=== PATIENT | female | born 1990 | race Caucasian/White ===

== ENCOUNTER 2017-01-02 08:35 | Emergency (ER) | payer BC ==
[2017-01-02] MEDS ORDERED: NORMAL SALINE 1000 ML 1,000 ML IV ONE (09:28)
--- NOTE | 2017-01-02 09:32 | ER Document Report ---
ED Respiratory Problem - General Chief Complaint: Cough Stated Complaint: COUGH AND FEVER Time Seen by Provider: 01/02/17 09:02 Mode of Arrival: Ambulatory Information source: Patient Notes: 26-year-old female presents to ED for report of cough x1 week with max 102.6. Went to urgent care on Sunday. He did not see them back spots on her right eye since this morning and has been dizzy. Via ambulance and they gave her half a bag of saline on the way in. She states she has been feeling wheezy at home. TRAVEL OUTSIDE OF THE [place] IN LAST 30 DAYS: No - HPI Patient complains to provider of: Cough Onset: Last week Duration: Continuous Initiating Event: URI Quality of pain: No pain Severity: None Pain Level: Denies Cough: Nonproductive Associated symptoms: Cough, Fever, PND, Runny nose Similar symptoms previously: Yes Recently seen / treated by doctor: Yes - Related Data Allergies/Adverse Reactions: ceftriaxone [From Rocephin] Allergy (Verified 07/06/16 05:22) latex Allergy (Verified 07/06/16 05:22) Past Medical History - General Information source: Patient - Social History Smoking Status: Never Smoker Cigarette use (# per day): No Chew tobacco use (# tins/day): No Smoking Education Provided: No Frequency of alcohol use: None Drug Abuse: None 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 Lives with: Family Family History: Arthritis, DM, Hypertension, Malignancy, Thyroid Disfunction Patient has suicidal ideation: No Patient has homicidal ideation: No - Past Medical History Cardiac Medical History: Reports: None Pulmonary Medical History: Reports: None EENT Medical History: Reports: None Endocrine Medical History: Reports: Hx Diabetes Mellitus Type 1 Renal/ Medical History: Reports: Hx Ovarian Cysts Malignancy Medical History: Reports: None GI Medical History: Reports: None Musculoskeltal Medical History: Reports Hx Musculoskeletal Deformity, Reports Hx Musculoskeletal Trauma Skin Medical History: Reports Hx Cellulitis Psychiatric Medical History: Reports: Hx Anxiety Traumatic Medical History: Reports: Hx Fractures - wrist and ankle Infectious Medical History: Reports: None Past Surgical History: Reports: Hx Section - Immunizations Hx Diphtheria, Pertussis, Tetanus Vaccination: No Review of Systems - Review of Systems Constitutional: Fever, Recent illness EENT: Nose discharge, Sinus discharge, Other - Black dots in film to the right eye Cardiovascular: Dizziness Respiratory: Cough Gastrointestinal: No symptoms reported Genitourinary: No symptoms reported Female Genitourinary: No symptoms reported Musculoskeletal: No symptoms reported Skin: No symptoms reported Hematologic/Lymphatic: No symptoms reported Neurological/Psychological: No symptoms reported Physical Exam - Vital signs Vitals: Temp Pulse Resp BP Pulse Ox 100.5 F H 123 H 20 114/73 94 01/02/17 08:54 01/02/17 08:54 01/02/17 08:54 01/02/17 08:54 01/02/17 08:54 Interpretation: Normal - General General appearance: Appears well, Alert - HEENT Head: Normocephalic, Atraumatic Eyes: Normal Pupils: PERRL Ears: Normal External canal: Normal Tympanic membrane: Normal Sinus: Normal Nasal: Purulent discharge, Swelling Mouth/Lips: Normal Mucous membranes: Normal Pharynx: Post nasal drainage Neck: Normal - Respiratory Respiratory status: No respiratory distress Chest status: Nontender Breath sounds: Nonproductive cough. No: Rales, Rhonchi, Stridor, Wheezing, Other Chest palpation: Normal - Cardiovascular Rhythm: Regular Heart sounds: Normal auscultation Murmur: No - Abdominal Inspection: Normal Distension: No distension Bowel sounds: Normal Tenderness: Nontender Organomegaly: No organomegaly - Back Back: Normal, Nontender - Extremities General upper extremity: Normal inspection, Nontender, Normal color, Normal ROM , Normal temperature General lower extremity: Normal inspection, Nontender, Normal color, Normal ROM , Normal temperature, Normal weight bearing. No: Daphne's sign - Neurological Neuro grossly intact: Yes Cognition: Normal Orientation: AAOx4 [place] Coma Scale Eye Opening: Spontaneous Ivan Coma Scale Verbal: Oriented [place] Coma Scale Motor: Obeys Commands Ivan Coma Scale Total: 15 Speech: Normal Motor strength normal: LUE, RUE, LLE, RLE Sensory: Normal - Psychological Associated symptoms: Normal affect, Normal mood - Skin Skin Temperature: Warm Skin Moisture: Dry Skin Color: Normal Course - Vital Signs Vital signs: Temp Pulse Resp BP Pulse Ox 98.7 F 110 H 16 109/73 100 01/02/17 09:22 01/02/17 10:57 01/02/17 10:57 01/02/17 10:57 01/02/17 10:57 Discharge - Discharge Clinical Impression: Dizziness Upper respiratory infection Qualifiers: URI type: unspecified URI Qualified Code(s): J06.9 - Acute upper respiratory infection, unspecified Condition: Stable Disposition: HOME, SELF-CARE Instructions: Family Physicians / Practices Additional Instructions: DIZZINESS: Under normal circumstances, your sense of balance is controlled by a number of signals that your brain receives from several locations: Eyes. No matter what your position, visual signals help you determine where your body is in space and how it's moving. Sensory nerves. These are in your skin, muscles and joints. Sensory nerves send messages to your brain about body movements and positions. Inner ear. The organ of balance in your inner ear is the vestibular labyrinth. It includes loop-shaped structures (semicircular canals) that contain fluid and fine, hair-like sensors that monitor the rotation of your head. Near the semicircular canals are the utricle and saccule, which contain tiny particles called otoconia ([id number]). These particles are attached to sensors that help detect gravity and bnvc-dmo-[id number] motion. Good balance depends on at least two of these three sensory systems working well. For instance, closing your eyes while washing your hair in the shower doesn't mean you'll lose your balance. Signals from your inner ear and sensory nerves help keep you upright. However, if your central nervous system can't process signals from all of these locations, if the messages are contradictory, or if the sensory systems aren't functioning properly, you may experience loss of balance. Dizziness may have a number of potential causes. These may include: Vertigo Vertigo - the false sense of motion or spinning - is the most common symptom of dizziness. Sitting up or moving around may make it worse. Sometimes vertigo is severe enough to cause nausea and vomiting. Vertigo usually results from a problem with the nerves and the structures of the balance mechanism in your inner ear (vestibular system), which sense movement and changes in your head position. Abnormal rhythmic eye movements ( nystagmus) almost always accompany vertigo. Causes of vertigo may include: Benign paroxysmal positional vertigo (BPPV). BPPV involves intense, brief episodes of vertigo associated with a change in the position of your head, often when you turn over in bed or sit up in the morning. It occurs when normal calcium carbonate crystals (otoconia) break loose and fall into the wrong part of the canals in your inner ear. When these particles shift, they stimulate sensors in your ear, producing an episode of vertigo. Doctors don't know what causes BPPV, but it may be a natural result of aging. Trauma to your head also may lead to BPPV. Inflammation in the inner ear. Signs and symptoms of inflammation of the inner ear (acute vestibular neuronitis or labyrinthitis) include sudden, intense vertigo that may persist for several days, with nausea and vomiting. It can be incapacitating, requiring bed rest to minimize the signs and symptoms. Fortunately, vestibular neuronitis generally subsides and clears up on its own. Recovery time may be shorter with vestibular rehabilitation exercises. Although the cause of this condition is unknown, it may be a viral infection. Meniere's disease. This disease involves the excessive buildup of fluid in your inner ear. It may affect adults at any age and is characterized by sudden episodes of vertigo lasting 30 minutes to an hour or longer. Other signs and symptoms include the feeling of fullness in your ear, buzzing or ringing in your ear (tinnitus), and fluctuating hearing loss. The cause of Meniere's disease is unknown. Vestibular migraine. People who experience a vestibular migraine are very sensitive to motion. Dizziness and vertigo caused by a vestibular migraine may be triggered by turning your head quickly, being in a crowded or confusing place , driving or riding in a vehicle, or even watching movement on TV. A vestibular migraine may cause feelings of imbalance or unsteadiness, hearing loss, "muffled " hearing, or ringing in your ears (tinnitus). For most people with a vestibular migraine, vertigo doesn't necessarily happen at the same time as the headache. Instead, typical migraine triggers may lead to vertigo without an actual migraine. Attacks of migrainous vertigo can last from a few minutes to several days. Acoustic neuroma. An acoustic neuroma (schwannoma) is a noncancerous (benign ) growth on the acoustic nerve, which connects the inner ear to your brain. Signs and symptoms of an acoustic neuroma may include dizziness, loss of balance , hearing loss and tinnitus. Rapid changes in motion. Riding on roller coasters or in boats, cars or even airplanes may on occasion make you dizzy. Other causes. Rarely, vertigo can be a symptom of a more serious neurological problem such as a stroke, brain hemorrhage or multiple sclerosis. UPPER RESPIRATORY ILLNESS: You have a viral infection of the respiratory passages -- a "cold." This common infection causes nasal congestion, drainage, and often sore throat and cough. It is highly contagious. The disease usually lasts about 10 to 14 days. There is no "cure" for the viral infection -- it must run its course. If there is a complication, such as bacterial infection in the nose, sinuses, middle ear, or bronchial tubes, antibiotics may be required. The antibiotics won't affect the virus. Drink plenty of fluids. A humidifier may help. An expectorant medication or decongestant may make you more comfortable. Use acetaminophen or ibuprofen for fever or aches. See the doctor if fever persists over two days, if there is any significant worsening of your symptoms, or if you simply fail to improve as expected. DECONGESTANT MEDICATION: A decongestant medicine has been prescribed. Often this medicine is combined in the same tablet with an antihistamine or expectorant. This type of medicine is helpful in treating a bad cold or sinus condition, as well as in treatment of the nasal congestion of hay fever. It is not of much benefit for lung infections. Decongestant medicines are related to stimulants. They can cause an increase in blood pressure and heart rate. Persons with heart disease and high blood pressure should not take decongestants without discussing this with the physician. If you develop palpitations, chest pain, headache, or tremors, stop the medicine and consult your physician. COUGH-SUPPRESSANT & EXPECTORANT MEDICATION: You are to use a cough medication as needed for relief of symptoms. This medicine is a combination of an expectorant (to make the mucous thinner and more easily "coughed up") and a cough suppressant (to reduce the frequency of coughing). The cough-suppressant medicine is related to narcotics. You may experience mild nausea and sleepiness. Some patients who are very sensitive to narcotics may have stomach pain from this medicine. Taking the medicine with food reduces these side effects. Do not drive or work with machinery until you know how this medicine affects you. The expectorant should have no side effects. Iodine-containing expectorants (such as organidin) should not be taken by persons with active thyroid disease unless approved by your doctor. Call the doctor if you develop shortness of breath, hives, rash, itching, lightheadedness, or severe nausea and vomiting. USE OF ACETAMINOPHEN (Tylenol): Acetaminophen may be taken for pain relief or fever control. It's much safer than aspirin, offering a wider range of "safe" dosages. It is safe during . Some brand names are Tylenol, Panadol, Datril, Anacin 3, Tempra, and Liquiprin. Acetaminophen can be repeated every four hours. The following are maximum recommended dosages: >89 pounds or adults 650 mg to 900 mg Acetaminophen can be repeated every four hours. Maximum dose not to exceed 4000 mg a day. Intravenous (IV) Fluids As part of your care today, you received intravenous (IV) fluids. IV fluids are administered to patients who are dehydrated or to those who have certain chemical (electrolyte) abnormalities that need correcting. Continue medications prescribed by the urgent care and follow-up with your primary doctor. Please get a follow-up appointment with your seismograph supervisor or eye doctor. FOLLOW-UP CARE: If you have been referred to a physician for follow-up care, call the physician s office for an appointment as you were instructed or within the next two days. If you experience worsening or a significant change in your symptoms, notify the physician immediately or return to the Emergency Department at any time for re-evaluation. Forms: Return to Work
[2017-01-02] MEDS ORDERED: ACETAMINOPHEN 325 MG TABLET PO ONE (10:40)
[2017-01-02] MEDS ORDERED: IBUPROFEN 800 MG TABLET PO ONE (10:42)
[2017-01-02] MEDS ORDERED: PROCHLORPERAZINE MALEATE 10 MG TABLET PO ONE (10:42)
[2017-01-02 11:01] VITALS: BP 109/73
== END 2017-01-02 11:01 | disposition home or self-care (01) ==
LOC: ER 08:35
DX: J06.9 Acute upper respiratory infection, unspecified (principal); R42 Dizziness and giddiness; R05 Cough; R50.9 Fever, unspecified; E10.9 Type 1 diabetes mellitus without complications; Z91.040 Latex allergy status
CPT/HCPCS: 99283; S0183; J7030

== ENCOUNTER 2018-01-21 21:39 | Emergency (ER) | payer BC ==
--- NOTE | 2018-01-22 00:37 | ER Document Report ---
ED Medical Screen (RME) - General Chief Complaint: Cough Stated Complaint: COUGH Time Seen by Provider: 01/22/18 00:34 Mode of Arrival: Ambulatory Information source: Patient Notes: 27-year-old female patient presents with complaints of wet cough and shortness of breath. Patient reports that she has been sick for approximately 8 days with an upper respiratory infection. Patient was seen in urgent care yesterday and placed on a azithromycin Dosepak. Patient denies any history of asthma however patient reports that she feels that she has been wheezing at home and feels like she "cannot catch her breath". Patient reports past medical history of insulin-dependent diabetes. TRAVEL OUTSIDE OF THE [place] IN LAST 30 DAYS: No - Related Data Allergies/Adverse Reactions: ceftriaxone [From Rocephin] Allergy (Verified 07/06/16 05:22) latex Allergy (Verified 07/06/16 05:22) Past Medical History - General Information source: Patient - Social History Cigarette use (# per day): No Chew tobacco use (# tins/day): No - She has Frequency of alcohol use: None Drug Abuse: None Lives with: Family Endocrine Medical History: Reports: Hx Diabetes Mellitus Type 1 Renal/ Medical History: Reports: Hx Ovarian Cysts. Denies: Hx Peritoneal Dialysis Musculoskeltal Medical History: Reports Hx Musculoskeletal Deformity, Reports Hx Musculoskeletal Trauma Skin Medical History: Reports Hx Cellulitis Psychiatric Medical History: Reports: Hx Anxiety Traumatic Medical History: Reports: Hx Fractures - wrist and ankle Past Surgical History: Reports: Hx Section - Immunizations Hx Diphtheria, Pertussis, Tetanus Vaccination: No Review of Systems - Review of Systems Constitutional: Chills EENT: Sinus pressure Respiratory: Cough, Short of breath Gastrointestinal: No symptoms reported - Restroom Genitourinary: No symptoms reported Female Genitourinary: No symptoms reported Musculoskeletal: No symptoms reported Skin: No symptoms reported Hematologic/Lymphatic: No symptoms reported - Chest x-ray is in the restroom Neurological/Psychological: No symptoms reported Physical Exam - Vital signs Vitals: Temp Pulse Resp BP Pulse Ox 98.9 F 107 H 18 163/91 H 98 01/21/18 21:46 01/21/18 21:46 01/21/18 21:46 01/21/18 21:46 01/21/18 21:46 - Notes Notes: PHYSICAL EXAMINATION: LUNGS: Breath sounds clear to auscultation bilaterally and equal. No wheezes rales or rhonchi. Course - Vital Signs Vital signs: Temp Pulse Resp BP Pulse Ox 98.9 F 107 H 18 163/91 H 98 01/21/18 21:46 01/21/18 21:46 01/21/18 21:46 01/21/18 21:46 01/21/18 21:46
--- NOTE | 2018-01-22 01:08 | RADIOLOGY REPORT (SQ) ---
EXAM DESCRIPTION: XR CHEST 2 VIEWS COMPLETED DATE/TME: 01/22/2018 00:34 CLINICAL HISTORY: 27 years Female, cough, sob COMPARISON: None. FINDINGS: Adequate lung volume, clear parenchyma, normal cardiac silhouette, and intact bony thorax. IMPRESSION: No acute cardiopulmonary findings.
[2018-01-22] MEDS ORDERED: BENZONATATE 100 MG CAPSULE PO ONE (02:33)
[2018-01-22] MEDS ORDERED: ALBUTEROL SULFATE HFA (90 MCG/PUFF) 200 PUFF/8.5 GM MDI IH ONE (02:33)
--- NOTE | 2018-01-22 02:34 | ER Document Report ---
ED General - General Chief Complaint: Cough Stated Complaint: COUGH Time Seen by Provider: 01/22/18 00:34 Mode of Arrival: Ambulatory Notes: Patient is a 27-year-old female with a past medical history of morbid obesity, type 2 diabetes with insulin dependence who presents with 8 days of cough and intermittent shortness of breath. She states that her shortness of breath is more like a sensation of choking where she feels like she has phlegm in her throat that she is unable to clear. She was seen in urgent care yesterday, prescribed azithromycin but notes that this has not helped to improve her symptoms. Nothing worsens her symptoms. She denies a history of similar symptoms in the past. She denies any history of asthma and does not smoke. She notes at the time of my assessment that she overall feels better than she did earlier when she first came to the emergency department. Multiple sick contacts with similar symptoms. TRAVEL OUTSIDE OF THE [place] IN LAST 30 DAYS: No - Related Data Allergies/Adverse Reactions: ceftriaxone [From Rocephin] Allergy (Verified 07/06/16 05:22) latex Allergy (Verified 07/06/16 05:22) Past Medical History - General Information source: Patient - Social History Smoking Status: Never Smoker Cigarette use (# per day): No Chew tobacco use (# tins/day): No - She has Frequency of alcohol use: None Drug Abuse: None Lives with: Family Family History: Arthritis, DM, Hypertension, Malignancy, Thyroid Disfunction Patient has suicidal ideation: No Patient has homicidal ideation: No Endocrine Medical History: Reports: Hx Diabetes Mellitus Type 1 Renal/ Medical History: Reports: Hx Ovarian Cysts. Denies: Hx Peritoneal Dialysis Musculoskeltal Medical History: Reports Hx Musculoskeletal Deformity, Reports Hx Musculoskeletal Trauma Skin Medical History: Reports Hx Cellulitis Psychiatric Medical History: Reports: Hx Anxiety Traumatic Medical History: Reports: Hx Fractures - wrist and ankle Past Surgical History: Reports: Hx Section - Immunizations Hx Diphtheria, Pertussis, Tetanus Vaccination: No Review of Systems - Review of Systems Notes: Constitutional: Negative for fever. HENT: Negative for sore throat. Eyes: Negative for visual changes. Cardiovascular: Negative for chest pain. Respiratory: Positive for shortness of breath and cough Gastrointestinal: Negative for abdominal pain, vomiting or diarrhea. Genitourinary: Negative for dysuria. Musculoskeletal: Negative for back pain. Skin: Negative for rash. Neurological: Negative for headaches, weakness or numbness. 10 point ROS negative except as marked above and in HPI. Physical Exam - Vital signs Vitals: Temp Pulse Resp BP Pulse Ox 98.9 F 107 H 18 163/91 H 98 01/21/18 21:46 01/21/18 21:46 01/21/18 21:46 01/21/18 21:46 01/21/18 21:46 Interpretation: Hypertensive, Tachycardic - Resolved at the time of my assessment Notes: PHYSICAL EXAMINATION: GENERAL: Well-appearing, well-nourished and in no acute distress. HEAD: Atraumatic, normocephalic. EYES: Pupils equal round and reactive to light, extraocular movements intact, sclera anicteric, conjunctiva are normal. ENT: nares patent, oropharynx clear without exudates. Moist mucous membranes. NECK: Normal range of motion, supple without lymphadenopathy LUNGS: Breath sounds clear to auscultation bilaterally and equal. No wheezes rales or rhonchi. HEART: Regular rate and rhythm without murmurs ABDOMEN: Soft, nontender, normoactive bowel sounds. No guarding, no rebound. No masses appreciated. EXTREMITIES: Normal range of motion, no pitting or edema. No cyanosis. NEUROLOGICAL: No focal neurological deficits. Moves all extremities spontaneously and on command. PSYCH: Normal mood, normal affect. SKIN: Warm, Dry, normal turgor, no rashes or lesions noted. Course - Re-evaluation Re-evalutation: 01/22/18 02:33 Patient presents with a clinical history and exam most consistent with an acute viral bronchitis. Patient is overall well in appearance without tachypnea, hypoxemia, tachycardia, or difficulty with ambulation. Breath sounds are clear bilaterally. No fever. Patient does have additional signs of upper respiratory infection including nasal congestion, sore throat, and sinus pressure. Chest x-ray is clear without evidence of pneumonia. Will treat with bronchodilators and Tessalon Perles. At this time will discharge with return precautions and follow-up recommendations. Verbal discharge instructions given a the bedside and opportunity for questions given. Medication warnings reviewed. Patient is in agreement with this plan and has verbalized understanding of return precautions and the need for primary care follow-up in the next 24-72 hours. - Vital Signs Vital signs: Temp Pulse Resp BP Pulse Ox 98.7 F 96 16 147/72 H 98 01/22/18 02:55 01/22/18 02:55 01/22/18 02:55 01/22/18 02:55 01/22/18 02:55 - Diagnostic Test Radiology reviewed: Image reviewed, Reports reviewed Radiology results interpreted by me: 01/22/18 02:34 Chest x-ray: No acute infiltrate or pneumothorax Discharge - Discharge Clinical Impression: Shortness of breath Acute bronchitis Qualifiers: Bronchitis organism: unspecified organism Qualified Code(s): J20.9 - Acute bronchitis, unspecified Condition: Good Disposition: HOME, SELF-CARE Additional Instructions: You were seen for symptoms most consistent with bronchitis. This can take up to 12 weeks to fully resolve. This is generally due to a viral infection. Please follow-up with your primary doctor in the next 2-3 days. Return if you develop worsening cough, vomiting, fever >100.4, pass out, begin coughing blood, or have any other symptoms that are concerning to you. Please use the medications prescribed today as directed. Prescriptions: Benzonatate [Tessalon Perles 100 mg Capsule] 100 mg PO Q8HP PRN #40 capsule PRN Reason: Referrals: ARTIE ORNELAS DO [Primary Care Provider] - Follow up as needed
[2018-01-22 02:56] VITALS: BP 147/72
== END 2018-01-22 02:56 | disposition home or self-care (01) ==
LOC: ER 21:39
DX: J20.9 Acute bronchitis, unspecified (principal); R05 Cough; J02.9 Acute pharyngitis, unspecified; R09.81 Nasal congestion; J34.89 Other specified disorders of nose and nasal sinuses; R06.02 Shortness of breath; E11.9 Type 2 diabetes mellitus without complications; Z79.4 Long term (current) use of insulin; Z88.1 Allergy status to other antibiotic agents; Z91.040 Latex allergy status
CPT/HCPCS: 99283; 71046; J3490

== ENCOUNTER 2018-08-28 07:48 | Inpatient (IN) | payer BC ==
[2018-08-28] MEDS ORDERED: DIPHENHYDRAMINE HCL 50 MG/ML VIAL IV ONE (08:17)
[2018-08-28] MEDS ORDERED: FAMOTIDINE INJ/PF 20 MG/2 ML SDV IV ONE (08:17)
[2018-08-28] MEDS ORDERED: METHYLPREDNISOLONE INJ 125 MG/2 ML SDV IV ONE (08:17)
[2018-08-28] MEDS ORDERED: EPINEPHRINE INJ/PF 1 MG/1 ML AMPULE IM ONE ×2 (08:18→10:50)
--- NOTE | 2018-08-28 08:22 | ER Document Report ---
ED General - General Chief Complaint: Shortness Of Breath Stated Complaint: DIFFICULTY BREATHING Time Seen by Provider: 08/28/18 08:07 Primary Care Provider: ARTIE ORNELAS DO [Primary Care Provider] - Follow up as needed TRAVEL OUTSIDE OF THE [place] IN LAST 30 DAYS: No - HPI Notes: Patient is a 28-year-old female that presents to the emergency department for chief complaint of throat swelling. Patient reports she woke up this morning with throat swelling. She states she feels like her uvula is enlarged. She was seen at her primary care doctor's office because she is having a sore throat yesterday. She has baseline tonsillar edema and states she has been considering talking to ENT for tonsillectomy. The swelling she feels today is significantly worse. She denies exposure to any known allergy. She denies history of anaphylactic reaction in the past. She is not on any medications other than insulin and denies any change in those doses recently. She states she is having a difficult time breathing because of the swelling in her throat. Past Medical History: Diabetes Past Surgical History: Social History: Denies drugs alcohol and tobacco Family History: Reviewed and noncontributory for presenting illness Allergies: Reviewed, see documented allergy list. REVIEW OF SYSTEMS: CONSTITUTIONAL : No fever No chills No diaphoresis No recent illness EENT: No vision changes No congestion sore throat CARDIOVASCULAR: No chest pain No palpitations RESPIRATORY: No shortness of breath No cough No difficulty breathing GASTROINTESTINAL: No abdominal pain No nausea No vomiting No diarrhea GENITOURINARY: No dysuria No hematuria difficulty urinating MUSCULOSKELETAL: No back pain No leg pain No arm pain SKIN: No rashes No lesions LYMPHATIC: No swollen, enlarged glands. NEUROLOGICAL: No lightheadedness No headache No weakness No paresthesias PSYCHIATRIC: No anxiety No depression PHYSICAL EXAMINATION: Vital signs reviewed, nursing noted reviewed. GENERAL: Well-appearing, well-nourished and in no acute distress. HEAD: Atraumatic, normocephalic. EYES: Eyes appear normal, extraocular movements intact, sclera anicteric, conjunctiva are normal. ENT: nares patent, uvular edema, oral pharyngeal edema with no erythema or exudates, tonsillar enlargement bilaterally, moist mucous membranes. NECK: Normal range of motion, supple without lymphadenopathy LUNGS: No stridor, breath sounds clear to auscultation bilaterally and equal. No wheezes rales or rhonchi. HEART: Tachycardic rate and regular rhythm without murmurs ABDOMEN: Soft, nontender, normoactive bowel sounds. No rebound, guarding, or rigidity. No masses appreciated. EXTREMITIES: Nontender, good range of motion, no pitting or edema. NEUROLOGICAL: No focal neurological deficits. Moves all extremities spontaneously Motor and sensory grossly intact on exam. PSYCH: Anxious mood, normal affect. SKIN: Warm, Dry, normal turgor, no rashes or lesions noted on exposed skin - Related Data Allergies/Adverse Reactions: ceftriaxone [From Rocephin] Allergy (Verified 07/06/16 05:22) latex Allergy (Verified 07/06/16 05:22) Past Medical History - Social History Smoking Status: Never Smoker Chew tobacco use (# tins/day): No Frequency of alcohol use: None Drug Abuse: None Family History: Arthritis, DM, Hypertension, Malignancy, Thyroid Disfunction Patient has suicidal ideation: No Patient has homicidal ideation: No Endocrine Medical History: Reports: Hx Diabetes Mellitus Type 1 Renal/ Medical History: Reports: Hx Ovarian Cysts. Denies: Hx Peritoneal Dialysis Musculoskeletal Medical History: Reports Hx Musculoskeletal Deformity, Reports Hx Musculoskeletal Trauma Skin Medical History: Reports Hx Cellulitis Psychiatric Medical History: Reports: Hx Anxiety Traumatic Medical History: Reports: Hx Fractures - wrist and ankle Past Surgical History: Reports: Hx Section - Immunizations Hx Diphtheria, Pertussis, Tetanus Vaccination: No Physical Exam - Vital signs Vitals: Temp Pulse Resp BP Pulse Ox 98.7 F 111 H 16 160/101 H 100 08/28/18 07:53 08/28/18 07:53 08/28/18 07:53 08/28/18 07:53 08/28/18 07:53 Course - Re-evaluation Re-evalutation: 08/28/18 08:21 Vitals reviewed. Nursing notes reviewed. Patient has a significant amount of posterior oropharyngeal and uvular edema. She was given epinephrine, Solu- Medrol, Pepcid and Benadryl for allergic reaction. 08/28/18 09:23 Patient reevaluated and is feeling better. She still has a moderate amount of uvular edema over the oropharyngeal edema is improving. She still has no stridor. We will continue to monitor her airway. 08/28/18 10:54 Patient again reevaluated and her oropharyngeal exam is the same as it was at 0 923 however she feels that the swelling is starting to increase again. She is still breathing well on room air and in no respiratory distress. She has no stridor. She will be given another dose of the IM epinephrine for concern that her symptoms are subjectively worsening. Patient will be admitted to the ICU for close monitoring of her airway. I discussed her care with Dr. Barclay who has requested urine tox and basic lab work. She is in agreement with admission to the hospital and stable at time of admission. - Vital Signs Vital signs: Temp Pulse Resp BP Pulse Ox 98.7 F 112 H 21 H 139/84 H 98 08/28/18 07:53 08/28/18 08:02 08/28/18 09:01 08/28/18 09:01 08/28/18 09:01 Critical Care Note - Critical Care Note Total time excluding time spent on procedures (mins): 60 Comments: Multiple repeat evaluations. Stabilization of acute anaphylaxis. Repeat dosing of epinephrine. Potential for respiratory and cardiovascular decompensation. Discharge - Discharge Clinical Impression: Uvular edema Anaphylaxis Qualifiers: Encounter type: initial encounter Qualified Code(s): T78.2XXA - Anaphylactic shock, unspecified, initial encounter Condition: Stable Disposition: ADMITTED OBSERVATION Admitting Provider: Hospitalist Unit Admitted: ICU Referrals: ARTIE ORNELAS DO [Primary Care Provider] - Follow up as needed
--- NOTE | 2018-08-28 08:58 | RADIOLOGY REPORT (SQ) ---
EXAM DESCRIPTION: SOFT TISSUE NECK COMPLETED DATE/TIME: 08/28/2018 8:50 am REASON FOR STUDY: throat swelling COMPARISON: None. NUMBER OF VIEWS: Two views. TECHNIQUE: AP and lateral radiographic image of the soft tissues of the neck. LIMITATIONS: None. FINDINGS: EPIGLOTTIS: Normal. Contour normal. Aryepiglottic folds normal. PREVERTEBRAL SOFT TISSUES: Normal. No soft tissue swelling. SUBGLOTTIC AREA: Normal. No narrowing. RETROPHARYNGEAL SPACE: Normal. No soft tissue masses. BONES: No significant findings. LUNG APICES: Normal. OTHER: No radiopaque foreign body. No other significant finding. IMPRESSION: NEGATIVE STUDY OF THE SOFT TISSUES OF THE NECK. TECHNICAL DOCUMENTATION: JOB ID: [id number] [employer]- All Rights Reserved Reading location - IP/workstation name: [email or web address]
[2018-08-28 11:28] LABS: ABSOLUTE LYMPHOCYTES (AUTO) 1.3 10^3/uL (0.5-4.7); ABSOLUTE MONOCYTES (AUTO) 0.2 10^3/uL (0.1-1.4); ABSOLUTE NEUT (AUTO) 8.1 10^3/uL (1.7-8.2); BASOPHILS % (AUTO) 0.3 % (0-2); EOSINOPHILS % (AUTO) 0.1 % (0-6); HEMATOCRIT 40.1 % (36.0-47.0); HEMOGLOBIN 14.3 g/dL (12.0-15.5); LYMPHOCYTES % (AUTO) 13.1 % (13-45); MEAN CORPUSCULAR HEMOGLOBIN 30.8 pg (27.0-33.4); MEAN CORPUSCULAR HGB CONC 35.6 g/dL (32.0-36.0); MEAN CORPUSCULAR VOLUME 87 fl (80-97); MONOCYTES % (AUTO) 2.6 % (3-13); PLATELET COUNT 219 10^3/uL (150-450); RED BLOOD COUNT 4.63 10^6/uL (3.72-5.28); SEGMENTED NEUTROPHILS % (AUTO) 83.9 % (42-78); TOTAL CELLS COUNTED % (AUTO) 100 %; WHITE BLOOD COUNT 9.7 10^3/uL (4.0-10.5)
[2018-08-28 12:17] LABS: ANION GAP 12 (5-19); BLOOD UREA NITROGEN 8 mg/dL (7-20); CALCIUM 9.4 mg/dL (8.4-10.2); CARBON DIOXIDE 23 mmol/L (22-30); CHLORIDE 103 mmol/L (98-107); GLUCOSE 284 mg/dL (75-110); POTASSIUM 4.8 mmol/L (3.6-5.0); SODIUM 137.7 mmol/L (137-145)
[2018-08-28 12:19] LABS: URINE AMPHETAMINES SCREEN NEGATIVE; URINE BARBITURATES SCREEN NEGATIVE; URINE BENZODIAZEPINES SCREEN NEGATIVE; URINE COCAINE SCREEN NEGATIVE; URINE MARIJUANA (THC) SCREEN NEGATIVE; URINE METHADONE SCREEN NEGATIVE; URINE PHENCYCLIDINE SCREEN NEGATIVE
[2018-08-28] MEDS ORDERED: IPRATROPIUM/ALBUTEROL 0.5-2.5 MG/3 ML AMPUL NEB PRN (14:18)
[2018-08-28] MEDS ORDERED: DIPHENHYDRAMINE HCL 50 MG/ML VIAL IV PRN (14:18)
[2018-08-28] MEDS ORDERED: ONDANSETRON HCL INJ/PF 4 MG/2 ML SDV IV PRN (14:18)
[2018-08-28] MEDS ORDERED: HYDRALAZINE HCL INJ/PF 20 MG/1 ML SDV IV PRN (14:18)
[2018-08-28] MEDS ORDERED: DEXTROSE 50%-WATER 25 GM/50 ML DISP.SYRIN IV PRN ×4 (14:18→17:37)
[2018-08-28] MEDS ORDERED: GLUCAGON,HUMAN RECOMB 1 MG INJ SUBCUT PRN (14:18)
[2018-08-28] MEDS ORDERED: ACETAMINOPHEN 325 MG TABLET PO PRN (14:18)
[2018-08-28] MEDS ORDERED: DEXTROSE 40% GEL 15 GM TUBE PO PRN ×4 (14:18→17:37)
[2018-08-28] MEDS ORDERED: METHYLPREDNISOLONE INJ 125 MG/2 ML SDV IV SCH (14:29)
[2018-08-28] MEDS ORDERED: DILTIAZEM HCL 30 MG TABLET PO SCH (14:30)
[2018-08-28] MEDS ORDERED: GLUCAGON,HUMAN RECOMB 1 MG INJ IM PRN (17:37)
[2018-08-28] MEDS: METHYLPREDNISOLONE INJ 125 MG/2 ML SDV IV SCH (17:49)
[2018-08-28] MEDS: DOCUSATE SODIUM 100 MG CAPSULE PO SCH (17:51)
[2018-08-28] MEDS ORDERED: DILTIAZEM HCL 30 MG TABLET PO ONE (18:00)
--- NOTE | 2018-08-28 18:01 | PDOC H&P ---
History of Present Illness Admission Date/PCP: 08/28/18 14:18 ARTIE ORNELAS DO Patient complains of: Shortness of breath History of Present Illness: YUNI CARD is a 28 year old female with a past medical history of diabetes type 2 and hypertension, who presented to the ED complaining of shortness of breath and swelling in her throat. Patient states that this morning she woke up and she felt like she could not swallow. She states that she felt short of breath and she was having difficulty swallowing. She came to the ED for evaluation. She denies any chest pain, abdominal pain, nausea/vomiting or diarrhea. She denies any new medications, new diet, use of new detergent, new clothing or exposure to anything new in the last 2 or 3 days. Patient states last night when she went to bed she was fine. She tells me that she has a history of type 2 diabetes since per her physician she is still making some insulin. She is currently on insulin and sliding scale at home. He does not know what her recent A1c is. I asked her if she is ever had swelling in the throat and she tells me that in the past she has had this when she had some sinusitis. She does admit to some congestion in the last 2 or 3 days with runny nose and congested feeling. She also admits that she went to her doctor for a regular scheduled visit yesterday and they swabbed her throat for strep, she does not know the results, and may be that triggered it. She also tell me about 2-3 weeks ago she was not feeling well and went to an urgent care and was given Augmentin for an infection of the upper respiratory tract/sinusitis. I discussed with her further about her swelling of the throat and if she is ever had before. She tells me know. She does admit however that many years ago she was started on lisinopril for her known diabetes and unfortunately she had a re action of swelling in the lip. At that time they believe she had angioedema from the lisinopril. And for this reason she was switched to losartan for renal protection. She has been taking the losartan for the last 7-8 months she tells me. Past Medical History Endocrine Medical History: Reports: Diabetes Mellitus Type 1 Past Surgical History Past Surgical History: Reports: Section Social History Smoking Status: Never Smoker - Advance Directive Resuscitation Status: Full Code Family History Family History: Arthritis, DM, Hypertension, Malignancy, Thyroid Disfunction Parental Family History Reviewed: Yes Children Family History Reviewed: Unknown Sibling(s) Family History Reviewed.: Unknown Medication/Allergy Home Medications: Ascorbic Acid [Vitamin C 500 mg Tablet] 500 mg PO DAILY 08/28/18 Cetirizine HCl [Zyrtec 10 mg Tablet] 10 mg PO DAILYP PRN 08/28/18 Cholecalciferol (Vitamin D3) [Vitamin D3 5000 unit Capsule] 5,000 unit PO DAILY 08/28/18 Citalopram Hydrobromide [Celexa 40 mg Tablet] 60 mg PO DAILY 08/28/18 Cyanocobalamin (Vitamin B-12) [Vitamin B-12] 1,000 mcg PO DAILY 08/28/18 Ergocalciferol (Vitamin D2) [Drisdol 50,000 Unit (1.25MG) Capsule] 50,000 unit PO MO@10 08/28/18 Flu Vacc [id number] [id number] Up/Pf [Fluzone Quad [id number] Syringe] 0.5 ml IM .RECEIVED 06/12/18 MDD 06/12/18 08/28/18 Hydrochlorothiazide [Hydrodiuril 25 mg Tablet] 25 mg PO DAILY 08/28/18 Insulin Regular, Human [Humulin R] 30 unit SQ BIDP PRN MDD slides a little bit 08/28/18 Losartan Potassium [Cozaar 25 mg Tablet] 25 mg PO DAILY 08/28/18 Metformin HCl [Metformin HCl ER] 1,000 mg PO BIDBS 08/28/18 Allergies/Adverse Reactions: ceftriaxone [From Rocephin] Allergy (Verified 07/06/16 05:22) latex Allergy (Verified 07/06/16 05:22) Review of Systems All systems: reviewed and no additional remarkable complaints except as stated Constitutional: ABSENT: chills, fever(s) Eyes: ABSENT: visual disturbances Nose, Mouth, and Throat: PRESENT: sore throat, other - Swelling of the throat. ABSENT: mouth pain Cardiovascular: ABSENT: chest pain, edema Respiratory: PRESENT: dyspnea. ABSENT: cough Gastrointestinal: ABSENT: abdominal pain, nausea, vomiting Genitourinary: ABSENT: dysuria Musculoskeletal: ABSENT: muscle weakness Neurological: ABSENT: abnormal movements, abnormal speech, focal weakness, numbness Endocrine: ABSENT: polyphagia Hematologic/Lymphatic: ABSENT: easy bruising Physical Exam Vital Signs: Temp Pulse Resp BP Pulse Ox 98.7 F 112 H 23 H 177/80 H 98 08/28/18 07:53 08/28/18 08:02 08/28/18 13:01 08/28/18 13:01 08/28/18 13:01 General appearance: PRESENT: no acute distress Head exam: PRESENT: atraumatic, normocephalic Eye exam: PRESENT: EOMI. ABSENT: conjunctival injection, scleral icterus Ear exam: PRESENT: normal external ear exam Mouth exam: PRESENT: moist, neck supple, tongue midline Throat exam: PRESENT: other - Uvula is swollen, unable to visualize the tonsils completely but they are enlarged. ABSENT: post pharyngeal erythema Respiratory exam: PRESENT: clear to auscultation marlyn, symmetrical, unlabored. ABSENT: retraction, rhonchi, stridor, wheezes Cardiovascular exam: PRESENT: +S1, +S2, tachycardia Pulses: PRESENT: +2 pedal pulses bilateral GI/Abdominal exam: PRESENT: normal bowel sounds, soft. ABSENT: tenderness Extremities exam: ABSENT: pedal edema Neurological exam: PRESENT: alert, awake, oriented to person, oriented to place, oriented to time, oriented to situation, CN II-XII grossly intact Skin exam: PRESENT: dry, warm Results Laboratory Results: 08/28/18 11:10 08/28/18 11:10 08/28/18 08/28/18 11:10 11:10 WBC 9.7 RBC 4.63 Hgb 14.3 Hct 40.1 MCV 87 MCH 30.8 MCHC 35.6 RDW 13.0 Plt Count 219 Seg Neutrophils % 83.9 H Lymphocytes % 13.1 Monocytes % 2.6 L Eosinophils % 0.1 Basophils % 0.3 Absolute Neutrophils 8.1 Absolute Lymphocytes 1.3 Absolute Monocytes 0.2 Absolute Eosinophils 0.0 Absolute Basophils 0.0 Sodium 137.7 Potassium 4.8 Chloride 103 Carbon Dioxide 23 Anion Gap 12 BUN 8 Creatinine 0.45 L Est GFR ( Amer) > 60 Est GFR (Non-Af Amer) > 60 Glucose 284 H Calcium 9.4 Impressions: Soft Tissue Neck X-Ray 08/28/18 08:17 IMPRESSION: NEGATIVE STUDY OF THE SOFT TISSUES OF THE NECK. Assessment & Plan - Diagnosis (1) Anaphylaxis Qualifiers: Encounter type: initial encounter Qualified Code(s): T78.2XXA - Anaphylactic shock, unspecified, initial encounter Is this a current diagnosis for this admission?: Yes Plan: She has uvular edema and feeling short of breath with feeling of swelling in her throat. At this time I am not clear what is causing this. In the ED she received 1 dose of epi, Solu-Medrol 125, Benadryl and Pepcid. She felt a little bit better but then again her he will start to swell. She so she received another dose of epi and I have not reevaluated her since. At this point given the fact that her airway may be compromised it is highly recommended that she goes to the ICU for very close monitoring. I spoke with patient about the fact that she may need to be intubated if her airway is compromised and she understands and she agrees with that plan. We will continue with Solu-Medrol 125 mg IV every 8 hours. Pepcid IV every 12 hours. Benadryl as needed. I have also consulted Dr. Salas for his assistance. Although I am not clear what is causing her current swelling I feel that this may be related to her use of losartan. Patient had a history of angioedema/swelling of the lips on lisinopril a few years ago and she was stopped on the lisinopril. But she was started on losartan 68 months ago for her history of diabetes and for renal protective purposes. Although lisinopril and losartan are not completely similar there might be some cross-reactivity and hence I have stopped losartan completely. (2) Diabetes Is this a current diagnosis for this admission?: Yes Plan: She tells me that she is type 2 diabetes per her doctor since she still making insulin in a small amount. She is currently on a concentrated form of insulin at home which we do not have here. I have asked her to bring it from home. At this time we will hold that insulin since she is n.p.o. We will just put her on a sliding scale before meals at bedtime. (3) Hypertension Is this a current diagnosis for this admission?: Yes Plan: She is on losartan which I have stopped. Start hydralazine as needed. We may have to start her on a more long-term chronic medication once she is feeling better from her anaphylaxis. (4) Uvular edema Is this a current diagnosis for this admission?: Yes Plan: See plan for anaphylaxis (5) Psychiatric disorder Is this a current diagnosis for this admission?: Yes Plan: She is on Celexa but this will be held since she is n.p.o. and I am not sure if she will be able to swallow-once her swelling goes down she will be able to resume her medication. (6) Tachycardia Is this a current diagnosis for this admission?: Yes Plan: She tells me that her resting heart rate is around 100-110. States that her doctors know about this and they have not done anything about it. - Time Time Spent: 50 to 70 Minutes Anticipated discharge: Home - Inpatient Certification Based on my medical assessment, after consideration of the patient's comorbidities, presenting symptoms, or acuity I expect that the services needed warrant INPATIENT care.: Yes I certify that my determination is in accordance with my understanding of Medicare's requirements for reasonable and necessary INPATIENT services [42 CFR 412.3e].: Yes Medical Necessity: Failure to Improve With Outpatient Therapy, Need Close Monitoring Due to Risk of Patient Decompensation, Need For Continuous Telemetry Monitoring - Plan Summary Plan Summary: Keep her in the ICU and monitor her for the next 24 hours and then we can downgrade her. If she does well after that for the next 24 hours she can be discharged to her primary care.
[2018-08-28] MEDS: NORMAL SALINE 1000 ML 1,000 ML IV PRN (18:09)
--- NOTE | 2018-08-28 18:40 | Progress Note ---
Provider Note Provider Note: called by nursing Lisset- wants me downgrade patient from ICU status since there are no beds available. Per Farhat- her current ED nurse patient is doing much better. i did not re-evaluate patient- will switch patient to IMCU and keep close monitor on her
[2018-08-28] MEDS: INSULIN LISPRO 100 UNIT/ML 3 ML VIAL SUBCUT PRN (19:08)
[2018-08-28] MEDS: LORAZEPAM INJ 2 MG/1 ML VIAL IV PRN (20:28)
[2018-08-29] MEDS: METHYLPREDNISOLONE INJ 125 MG/2 ML SDV IV SCH ×2 (03:00→10:20)
[2018-08-29 05:16] LABS: ABSOLUTE MONOCYTES (AUTO) 0.3 10^3/uL (0.1-1.4); ABSOLUTE NEUT (AUTO) 10.7 10^3/uL (1.7-8.2); BASOPHILS % (AUTO) 0.2 % (0-2); HEMATOCRIT 36.8 % (36.0-47.0); HEMOGLOBIN 12.9 g/dL (12.0-15.5); LYMPHOCYTES % (AUTO) 8.3 % (13-45); MEAN CORPUSCULAR HEMOGLOBIN 30.6 pg (27.0-33.4); MEAN CORPUSCULAR HGB CONC 35.1 g/dL (32.0-36.0); MEAN CORPUSCULAR VOLUME 87 fl (80-97); MONOCYTES % (AUTO) 2.3 % (3-13); PLATELET COUNT 231 10^3/uL (150-450); RED BLOOD COUNT 4.23 10^6/uL (3.72-5.28); RED CELL DISTRIBUTION WIDTH 12.9 % (11.5-14.0); SEGMENTED NEUTROPHILS % (AUTO) 89.2 % (42-78); TOTAL CELLS COUNTED % (AUTO) 100 %
[2018-08-29 05:39] LABS: ALANINE AMINOTRANSFERASE 21 U/L (9-52); ALBUMIN 4.2 g/dL (3.5-5.0); ALKALINE PHOSPHATASE 59 U/L (38-126); ANION GAP 14 (5-19); ASPARTATE AMINO TRANSFERASE 14 U/L (14-36); BILIRUBIN,DIRECT 0.3 mg/dL (0.0-0.4); BLOOD UREA NITROGEN 14 mg/dL (7-20); CALCIUM 9.3 mg/dL (8.4-10.2); CARBON DIOXIDE 19 mmol/L (22-30); CHLORIDE 102 mmol/L (98-107); GLUCOSE 317 mg/dL (75-110); POTASSIUM 4.4 mmol/L (3.6-5.0); SODIUM 134.7 mmol/L (137-145); TOTAL PROTEIN 6.6 g/dL (6.3-8.2)
[2018-08-29] MEDS: HEPARIN SOD (PORCINE) 5,000 UNIT/ML 1 ML SYRINGE SUBCUT SCH ×3 (05:48→22:05)
[2018-08-29] MEDS: DILTIAZEM HCL 30 MG TABLET PO SCH ×3 (05:51→22:07)
[2018-08-29] MEDS: INSULIN LISPRO 100 UNIT/ML 3 ML VIAL SUBCUT PRN ×2 (06:44→14:47)
[2018-08-29] MEDS ORDERED: CITALOPRAM HYDROBROMIDE 60 MG PO SCH (10:00)
[2018-08-29] MEDS: FAMOTIDINE INJ/PF 20 MG/2 ML SDV IV SCH ×3 (10:19→22:08)
[2018-08-29] MEDS: CITALOPRAM HYDROBROMIDE 20 MG TABLET PO SCH (10:20)
[2018-08-29] MEDS: HYDROCHLOROTHIAZIDE 25 MG TABLET PO SCH (10:21)
[2018-08-29] MEDS: DOCUSATE SODIUM 100 MG CAPSULE PO SCH ×2 (10:21→17:38)
[2018-08-29] MEDS: NORMAL SALINE 1000 ML 1,000 ML IV PRN (12:36)
[2018-08-29] MEDS: CETIRIZINE 10 MG TABLET PO SCH (13:03)
[2018-08-29] MEDS ORDERED: ONDANSETRON HCL INJ/PF 4 MG/2 ML SDV IV PRN (13:30)
--- NOTE | 2018-08-29 13:40 | PDOC PROGRESS REPORT ---
Subjective Progress Note for:: 08/29/18 Subjective:: Doing better, no difficulty swallowing. Patient admitted with suspected anaphylaxis to losartan. Her current symptoms different from her angioedema when she was on lisinopril. At that time she had swelling of the lips. Denies fever or chills, no chest pain or shortness of breath or palpitations, no abdominal pain, no nausea or vomiting. She has problems with allergic rhinitis and takes Zyrtec as outpatient. She will want restarted. She has enlarged tonsils and has plans to follow-up with ENT as outpatient. Reason For Visit: ANAPHYLAXIS Physical Exam Vital Signs: Temp Pulse Resp BP Pulse Ox 98.5 F 106 H 16 113/65 97 08/29/18 07:10 08/29/18 10:22 08/29/18 10:22 08/29/18 07:10 08/29/18 10:22 Intake & Output 08/28/18 08/29/18 08/30/18 06:59 06:59 06:59 Intake Total 1000 Balance 1000 Weight 121.6 kg GEN: NAD, well-developed, well-nourished ENT: Normocephalic atraumatic, tonsils are large but no erythema or exudate Neck: Supple, no JVD, no lymphadenopathy CV: RRR, NL S1S2 LUNGS: CTA bilaterally ABDOMEN Soft, NT, +BS EXTERMITIES: No e/c/c NEURO: Alert, oriented x3, nonfocal Results Laboratory Results: 08/29/18 04:15 08/29/18 04:15 08/29/18 08/29/18 08/29/18 04:15 04:15 04:15 WBC 12.0 H RBC 4.23 Hgb 12.9 Hct 36.8 MCV 87 MCH 30.6 MCHC 35.1 RDW 12.9 Plt Count 231 Seg Neutrophils % 89.2 H Lymphocytes % 8.3 L Monocytes % 2.3 L Eosinophils % 0.0 Basophils % 0.2 Absolute Neutrophils 10.7 H Absolute Lymphocytes 1.0 Absolute Monocytes 0.3 Absolute Eosinophils 0.0 Absolute Basophils 0.0 Sodium 134.7 L Potassium 4.4 Chloride 102 Carbon Dioxide 19 L Anion Gap 14 BUN 14 Creatinine 0.46 L Est GFR ( Amer) > 60 Est GFR (Non-Af Amer) > 60 Glucose 317 H Calcium 9.3 Magnesium 1.9 Total Bilirubin 1.0 AST 14 ALT 21 Alkaline Phosphatase 59 Total Protein 6.6 Albumin 4.2 TSH 0.49 Impressions: Soft Tissue Neck X-Ray 08/28/18 08:17 IMPRESSION: NEGATIVE STUDY OF THE SOFT TISSUES OF THE NECK. Assessment & Plan - Diagnosis (1) Anaphylaxis Qualifiers: Encounter type: subsequent encounter Qualified Code(s): T78.2XXD - Anaphylactic shock, unspecified, subsequent encounter Is this a current diagnosis for this admission?: Yes Plan: Improved. (2) Diabetes Is this a current diagnosis for this admission?: Yes (3) Hypertension Is this a current diagnosis for this admission?: Yes (4) Psychiatric disorder Is this a current diagnosis for this admission?: Yes Plan: Appears to be depression. Stable at this time. (5) Tachycardia Is this a current diagnosis for this admission?: Yes (6) Uvular edema Is this a current diagnosis for this admission?: Yes - Plan Summary Plan Summary: Will continue to hold losartan for now. Will transition Solu-Medrol to prednisone. Will restart Zyrtec. Would discontinue n.p.o. and allow patient to eat. Resume Celexa. If patient tolerating p.o. and continues to improve by a.m., likely discharge.
[2018-08-29] MEDS: LORAZEPAM INJ 2 MG/1 ML VIAL IV PRN (22:21)
[2018-08-30] MEDS: DILTIAZEM HCL 30 MG TABLET PO SCH (06:49)
[2018-08-30] MEDS: HEPARIN SOD (PORCINE) 5,000 UNIT/ML 1 ML SYRINGE SUBCUT SCH (06:49)
[2018-08-30] MEDS: CETIRIZINE 10 MG TABLET PO SCH (09:32)
[2018-08-30] MEDS: CITALOPRAM HYDROBROMIDE 20 MG TABLET PO SCH (09:32)
[2018-08-30] MEDS: FAMOTIDINE INJ/PF 20 MG/2 ML SDV IV SCH (09:32)
[2018-08-30] MEDS: HYDROCHLOROTHIAZIDE 25 MG TABLET PO SCH (09:32)
[2018-08-30] MEDS: DOCUSATE SODIUM 100 MG CAPSULE PO SCH (09:33)
[2018-08-30] MEDS ORDERED: PREDNISONE 20 MG TABLET PO SCH (10:00)
[2018-08-30 11:42] VITALS: BP 122/76
--- NOTE | 2018-09-03 09:15 | PDOC DISCHARGE SUMMARY ---
General - Admit/Disc Date/PCP Admission Date/Primary Care Provider: 08/28/18 14:18 ARTIE ORNELAS, Discharge Date: 08/30/18 - Discharge Diagnosis (1) Anaphylaxis Is this a current diagnosis for this admission?: Yes (2) Diabetes Is this a current diagnosis for this admission?: Yes (3) Hypertension Is this a current diagnosis for this admission?: Yes (4) Psychiatric disorder Is this a current diagnosis for this admission?: Yes (5) Tachycardia Is this a current diagnosis for this admission?: Yes (6) Uvular edema Is this a current diagnosis for this admission?: Yes - Additional Information Resuscitation Status: Full Code Prescriptions: Lorazepam [Ativan 0.5 mg Tablet] 0.5 mg PO Q6 #10 tab Prednisone [Deltasone 20 mg Tablet] 40 mg PO DAILY 3 Days tablet Home Medications: Ascorbic Acid [Vitamin C 500 mg Tablet] 500 mg PO DAILY 08/28/18 Cetirizine HCl [Zyrtec 10 mg Tablet] 10 mg PO DAILYP PRN 08/28/18 Cholecalciferol (Vitamin D3) [Vitamin D3 5000 unit Capsule] 5,000 unit PO DAILY 08/28/18 Citalopram Hydrobromide [Celexa 40 mg Tablet] 60 mg PO DAILY 08/28/18 Cyanocobalamin (Vitamin B-12) [Vitamin B-12] 1,000 mcg PO DAILY 08/28/18 Ergocalciferol (Vitamin D2) [Drisdol 50,000 unit (1.25MG) Capsule] 50,000 unit PO MO@10 08/28/18 Flu Vacc [id number] 36Mos Up/Pf [Fluzone Quad [id number] Syringe] 0.5 ml IM .RECEIVED 06/12/18 MDD 06/12/18 08/28/18 Hydrochlorothiazide [Hydrodiuril 25 mg Tablet] 25 mg PO DAILY 08/28/18 Insulin Regular, Human [Humulin R (Hi-Dose) Insulin 500 unit/mL] 30 unit SQ BIDP PRN MDD slides a little bit 08/28/18 Metformin HCl [Metformin HCl ER] 1,000 mg PO BIDBS 08/28/18 Lorazepam [Ativan 0.5 mg Tablet] 0.5 mg PO Q6 #10 tab 08/30/18 Prednisone [Deltasone 20 mg Tablet] 40 mg PO DAILY 3 Days tablet 08/30/18 History of Present Illness History of Present Illness: Patient was admitted after presentation as inHPI below: "YUNI CARD is a 28 year old female with a past medical history of diabetes type 2 and hypertension, who presented to the ED complaining of shortness of breath and swelling in her throat. Patient states that this morning she woke up and she felt like she could not swallow. She states that she felt short of breath and she was having difficulty swallowing. She came to the ED for evaluation. She denies any chest pain, abdominal pain, nausea/vomiting or diarrhea. She denies any new medications, new diet, use of new detergent, new clothing or exposure to anything new in the last 2 or 3 days. Patient states last night when she went to bed she was fine. She tells me that she has a history of type 2 diabetes since per her physician she is still making some insulin. She is currently on insulin and sliding scale at home. He does not know what her recent A1c is. I asked her if she is ever had swelling in the throat and she tells me that in the past she has had this when she had some sinusitis. She does admit to some congestion in the last 2 or 3 days with runny nose and congested feeling. She also admits that she went to her doctor for a regular scheduled visit yesterday and they swabbed her throat for strep, she does not know the results, and may be that triggered it. She also tell me about 2-3 weeks ago she was not feeling well and went to an urgent care and was given Augmentin for an infection of the upper respiratory tract/sinusitis. I discussed with her further about her swelling of the throat and if she is ever had before. She tells me [no]. She does admit however that many years ago she was started on lisinopril for her known diabetes and unfortunately she had a reaction of swelling in the lip. At that time they believe she had angioedema from the lisinopril. And for this reason she was switched to losartan for renal protection. She has been taking the losartan for the last 7-8 months she tells me." Hospital Course Hospital Course: Patient was admitted to the hospital with concern for anaphylaxis, likely secondary to Losartan, especially as she has had a history of lips swelling with Lisinopril in the past. Losartan was stopped and patient treated with IV solu- medrol. She improved and her swelling improved. She also had flareup of her anxiety and she received ativan prn. She is doing much better and remains improved after solu-medrol has been deescalated to po prednisone. She is also tolerating food and fluids by mouth. She is being discharged in improved condition on a short course of prednison. Also prescribed 10 tabs of Ativan 0.5mg prn. Physical Exam Vital Signs: Temp Pulse Resp BP Pulse Ox 98.1 F 107 H 16 122/74 97 08/30/18 08:05 08/30/18 09:36 08/30/18 09:36 08/30/18 08:05 08/30/18 09:36 Intake & Output 08/29/18 08/30/18 08/31/18 06:59 06:59 06:59 Intake Total 3889 Balance 3889 Weight 121.6 kg 121.2 kg GEN: NAD, well-developed, well-nourished ENT: Normocephalic atraumatic, tonsils are large but no erythema or exudate Neck: Supple, no JVD, no lymphadenopathy CV: RRR, NL S1S2 LUNGS: CTA bilaterally ABDOMEN Soft, NT, +BS EXTERMITIES: No e/c/c NEURO: Alert, oriented x3, nonfocal Results Laboratory Results: 08/29/18 04:15 08/29/18 04:15 Impressions: Soft Tissue Neck X-Ray 08/28/18 08:17 IMPRESSION: NEGATIVE STUDY OF THE SOFT TISSUES OF THE NECK. Qualifiers - * PATIENT BEING DISCHARGED WITH ANY OF THE FOLLOWING DIAGNOSIS: No Plan Discharge Plan: F/u with pcp within 1 week. Also, f/u with special class welder SHARITA. Time Spent: Greater than 30 Minutes
== END 2018-08-30 12:32 | disposition home or self-care (01) | DRG 916 ==
LOC: ER 07:48 → EH 11:07 → OBSVTOIN 14:18 → 3N 08-29 00:20
PROVIDERS: ADMIT Internal Medicine; ATTEND Internal Medicine
PROC: 3E0F73Z Introduction of Anti-inflammatory into Respiratory Tract, Via Natural or Artificial Opening (ICD-10-PCS; principal; 2018-08-29)
DX: T88.6XXA Anaphylactic reaction due to adverse effect of correct drug or medicament properly administered, initial encounter (principal); T46.5X5A Adverse effect of other antihypertensive drugs, initial encounter; E11.9 Type 2 diabetes mellitus without complications; F32.9 Major depressive disorder, single episode, unspecified; I10 Essential (primary) hypertension; R00.0 Tachycardia, unspecified; Z79.899 Other long term (current) drug therapy; Z79.4 Long term (current) use of insulin; Z83.3 Family history of diabetes mellitus; Z82.49 Family history of ischemic heart disease and other diseases of the circulatory system; Z82.61 Family history of arthritis; Z88.1 Allergy status to other antibiotic agents; Z91.040 Latex allergy status
CPT/HCPCS: 36415; 70360; 80048; 80053; 80307; 82962; 83036; 83735; 84443; 85025; 96372; 96374; 96375; 99291; J0171; J1200; J1644; J1815; J2060; J2930; J3490; J7030; J7512; S0028

== ENCOUNTER 2019-04-02 19:53 | Emergency (ER) | payer BC ==
--- NOTE | 2019-04-02 20:36 | ER Document Report ---
ED Medical Screen (RME) - General Chief Complaint: Swelling of Lower Extremity Stated Complaint: BILATERAL LEG AND ANKLE SWELLING Time Seen by Provider: 04/02/19 20:30 Primary Care Provider: ARTIE ORNELAS DO [Primary Care Provider] - Follow up as needed Mode of Arrival: Ambulatory Information source: Patient Notes: This 28-year-old female with history of diabetes presents emergency department with complaints of increasing peripheral edema. Also reports that they recently switched her insulin. She is afraid she may be in some type of lactic acidosis because she is having all the symptoms such as headache with blurred vision diarrhea shortness of breath increased charley horses. Patient did go to see her primary care provider last week for her symptoms they did switch her medications but she reports peripheral edema is worse. Patient does have bilateral peripheral edema +1 pitting. I have greeted and performed a rapid initial assessment of this patient. A comprehensive ED assessment and evaluation of the patient, analysis of test results and completion of the medical decision making process will be conducted by additional ED providers. Dictation of this chart was performed using voice recognition software; therefore, there may be some unintended grammatical errors. TRAVEL OUTSIDE OF THE [place] IN LAST 30 DAYS: No - Related Data Allergies/Adverse Reactions: ceftriaxone [From Rocephin] Allergy (Verified 07/06/16 05:22) latex Allergy (Verified 07/06/16 05:22) lisinopril Allergy (Verified 04/02/19 20:00) losartan Allergy (Verified 04/02/19 20:00) Past Medical History - Social History Frequency of alcohol use: None Drug Abuse: None Endocrine Medical History: Reports: Hx Diabetes Mellitus Type 1 Renal/ Medical History: Reports: Hx Ovarian Cysts. Denies: Hx Peritoneal Dialysis Musculoskeltal Medical History: Reports Hx Musculoskeletal Deformity, Reports Hx Musculoskeletal Trauma Skin Medical History: Reports Hx Cellulitis Psychiatric Medical History: Reports: Hx Anxiety, Hx Depression Traumatic Medical History: Reports: Hx Fractures - wrist and ankle Past Surgical History: Reports: Hx Section - Immunizations Hx Diphtheria, Pertussis, Tetanus Vaccination: No Physical Exam - Vital signs Vitals: Temp Pulse Resp BP Pulse Ox 98.3 F 115 H 18 136/82 H 99 04/02/19 20:01 04/02/19 20:01 04/02/19 20:01 04/02/19 20:01 04/02/19 20:01 Course - Vital Signs Vital signs: Temp Pulse Resp BP Pulse Ox 98.3 F 115 H 18 136/82 H 99 04/02/19 20:01 04/02/19 20:01 04/02/19 20:01 04/02/19 20:01 04/02/19 20:01 Doctor's Discharge - Discharge Referrals: ARTIE ORNELAS DO [Primary Care Provider] - Follow up as needed
[2019-04-02 21:05] LABS: ABSOLUTE BASOPHILS # (AUTO) 0.1 10^3/uL (0.0-0.2); ABSOLUTE EOSINOPHILS # (AUTO) 0.1 10^3/uL (0.0-0.6); ABSOLUTE LYMPHOCYTES (AUTO) 3.2 10^3/uL (0.5-4.7); ABSOLUTE MONOCYTES (AUTO) 0.6 10^3/uL (0.1-1.4); ABSOLUTE NEUT (AUTO) 5.2 10^3/uL (1.7-8.2); BASOPHILS % (AUTO) 0.8 % (0-2); EOSINOPHILS % (AUTO) 1.5 % (0-6); HEMATOCRIT 35.5 % (36.0-47.0); HEMOGLOBIN 12.7 g/dL (12.0-15.5); LYMPHOCYTES % (AUTO) 34.3 % (13-45); MEAN CORPUSCULAR HEMOGLOBIN 30.1 pg (27.0-33.4); MEAN CORPUSCULAR HGB CONC 35.8 g/dL (32.0-36.0); MEAN CORPUSCULAR VOLUME 84 fl (80-97); PLATELET COUNT 285 10^3/uL (150-450); RED BLOOD COUNT 4.22 10^6/uL (3.72-5.28); RED CELL DISTRIBUTION WIDTH 13.3 % (11.5-14.0); SEGMENTED NEUTROPHILS % (AUTO) 56.4 % (42-78); TOTAL CELLS COUNTED % (AUTO) 100 %; WHITE BLOOD COUNT 9.2 10^3/uL (4.0-10.5)
[2019-04-02 21:16] LABS: APPEARANCE,URINE CLEAR; BILIRUBIN,URINE NEGATIVE (NEGATIVE); COLOR,URINE STRAW; GLUCOSE, URINE NEGATIVE (NEGATIVE); KETONES,URINE NEGATIVE (NEGATIVE); LEUKOCYTE ESTERASE,URINE NEGATIVE (NEGATIVE); NITRITE,URINE NEGATIVE (NEGATIVE); PROTEIN,URINE NEGATIVE (NEGATIVE); URINE SPECIFIC GRAVITY 1.003; UROBILINOGEN,URINE NEGATIVE mg/dL (<2.0)
[2019-04-02 21:26] LABS: ALBUMIN 4.2 g/dL (3.5-5.0); ALKALINE PHOSPHATASE 62 U/L (38-126); ANION GAP 11 (5-19); ASPARTATE AMINO TRANSFERASE 22 U/L (14-36); BILIRUBIN,DIRECT 0.2 mg/dL (0.0-0.4); BILIRUBIN,TOTAL 0.5 mg/dL (0.2-1.3); BLOOD UREA NITROGEN 9 mg/dL (7-20); CALCIUM 9.7 mg/dL (8.4-10.2); CARBON DIOXIDE 26 mmol/L (22-30); CHLORIDE 95 mmol/L (98-107); GLUCOSE 97 mg/dL (75-110); POTASSIUM 3.8 mmol/L (3.6-5.0); TOTAL PROTEIN 7.1 g/dL (6.3-8.2)
--- NOTE | 2019-04-02 21:31 | RADIOLOGY REPORT (SQ) ---
XR CHEST 2 VIEWS EXAM DATE: 04/02/2019 8:34 PM CDT HISTORY: SOB, peripheral edema. COMPARISON: None. FINDINGS: The heart size is within normal limits. No consolidation, pleural effusion, or pneumothorax is seen. The bony thorax is intact. IMPRESSION: No evidence of acute cardiopulmonary disease.
--- NOTE | 2019-04-03 00:06 | ER Document Report ---
ED General - General Chief Complaint: Swelling of Lower Extremity Stated Complaint: BILATERAL LEG AND ANKLE SWELLING Time Seen by Provider: 04/02/19 20:30 Primary Care Provider: ARTIE ORNELAS DO [NO LOCAL MD] - Follow up as needed Mode of Arrival: Ambulatory Notes: RME NOTE: This 28-year-old female with history of diabetes presents emergency department with complaints of increasing peripheral edema. Also reports that they recently switched her insulin. She is afraid she may be in some type of lactic acidosis because she is having all the symptoms such as headache with blurred vision diarrhea shortness of breath increased charley horses. Patient did go to see her primary care provider last week for her symptoms they did switch her medications but she reports peripheral edema is worse. Patient does have bilateral peripheral edema +1 pitting. MY HPI: Upon my assessment of the patient she states that her legs are no longer swollen. Patient states her headache has since resolved. Patient is resting in bed comfortably. Patient also denying any blurred vision at this time. Patient states on Sunday she was at her primary care provider who switched her medications from HCTZ to Chlorthalidone due to her lower leg swelling. Patient states at that time they also did routine blood work which showed that her triglycerides were elevated. Patient states she does have an appointment with her primary care provider on Sunday of this week to discuss that lab report. Patient's family is in the room with her states she does get anxious very easily. Patient does take Ativan for generalized anxiety. Patient states she also started a new job with which she is sitting in a higher chair. States both of her legs hanging down throughout most of the day and that is when she is noticed to the generalized swelling. Again upon my arrival once patient is in her room she is denying any leg swelling at this time. States "Wow, they do look a lot better." TRAVEL OUTSIDE OF THE [place] IN LAST 30 DAYS: No - Related Data Allergies/Adverse Reactions: ceftriaxone [From Rocephin] Allergy (Verified 07/06/16 05:22) latex Allergy (Verified 07/06/16 05:22) lisinopril Allergy (Verified 04/02/19 20:00) losartan Allergy (Verified 04/02/19 20:00) Past Medical History - General Information source: Patient - Social History Smoking Status: Never Smoker Frequency of alcohol use: None Drug Abuse: None Family History: Arthritis, DM, Hypertension, Malignancy, Thyroid Disfunction Patient has suicidal ideation: No Patient has homicidal ideation: No Endocrine Medical History: Reports: Hx Diabetes Mellitus Type 1 Renal/ Medical History: Reports: Hx Ovarian Cysts. Denies: Hx Peritoneal Dialysis Musculoskeletal Medical History: Reports Hx Musculoskeletal Deformity, Reports Hx Musculoskeletal Trauma Skin Medical History: Reports Hx Cellulitis Psychiatric Medical History: Reports: Hx Anxiety, Hx Depression Traumatic Medical History: Reports: Hx Fractures - wrist and ankle Past Surgical History: Reports: Hx Section - Immunizations Hx Diphtheria, Pertussis, Tetanus Vaccination: No Review of Systems - Review of Systems Constitutional: denies: Fever EENT: No symptoms reported Cardiovascular: denies: Chest pain, Palpitations, Heart racing, Orthopnea, Dyspnea Respiratory: No symptoms reported Gastrointestinal: See HPI Genitourinary: No symptoms reported Female Genitourinary: No symptoms reported Musculoskeletal: See HPI Skin: No symptoms reported Hematologic/Lymphatic: No symptoms reported Neurological/Psychological: See HPI Physical Exam - Vital signs Vitals: Temp Pulse Resp BP Pulse Ox 98.3 F 115 H 18 136/82 H 99 04/02/19 20:01 04/02/19 20:01 04/02/19 20:01 04/02/19 20:01 04/02/19 20:01 - Notes Notes: GENERAL: Alert, interacts well. No acute distress. HEAD: Normocephalic, atraumatic. EYES: Pupils equal, round, and reactive to light. Extraocular movements intact. ENT: Oral mucosa moist, tongue midline. NECK: Full range of motion. Supple. Trachea midline. LUNGS: Clear to auscultation bilaterally, no wheezes, rales, or rhonchi. No respiratory distress. HEART: Regular rate and rhythm. No murmur ABDOMEN: Soft, non-tender. Non-distended. Bowel sounds present in all 4 quadrants. EXTREMITIES: Moves all 4 extremities spontaneously. No edema, normal radial and dorsalis pedis pulses bilaterally. No cyanosis. 5 out of 5 strength noticed all 4 extremities. BACK: no cervical, thoracic, lumbar midline tenderness. No saddle anesthesia, normal distal neurovascular exam. NEUROLOGICAL: Alert and oriented x3. Normal speech. cranial nerves II through XII grossly intact PSYCH: Normal affect, normal mood. SKIN: Warm, dry, normal turgor. No rashes or lesions noted. Course - Re-evaluation Re-evalutation: 04/03/19 00:10 Laboratory 04/02/19 04/02/19 04/02/19 20:50 20:50 20:50 WBC 9.2 RBC 4.22 Hgb 12.7 Hct 35.5 L MCV 84 MCH 30.1 MCHC 35.8 RDW 13.3 Plt Count 285 Lymph % (Auto) 34.3 Ray % (Auto) 7.0 Eos % (Auto) 1.5 Baso % (Auto) 0.8 Absolute Neuts (auto) 5.2 Absolute Lymphs (auto) 3.2 Absolute Monos (auto) 0.6 Absolute Eos (auto) 0.1 Absolute Basos (auto) 0.1 Seg Neutrophils % 56.4 Sodium 132.0 L Potassium 3.8 Chloride 95 L Carbon Dioxide 26 Anion Gap 11 BUN 9 Creatinine 0.47 L Est GFR ( Amer) > 60 Est GFR (MDRD) Non-Af > 60 Glucose 97 Calcium 9.7 Total Bilirubin 0.5 Direct Bilirubin 0.2 Neonat Total Bilirubin Not Reportable Neonat Direct Bilirubin Not Reportable Neonat Indirect Bili Not Reportable AST 22 ALT 18 Alkaline Phosphatase 62 NT-Pro-B Natriuret Pep Total Protein 7.1 Albumin 4.2 Urine Color STRAW Urine Appearance CLEAR Urine pH 6.0 Ur Specific [place] 1.003 Urine Protein NEGATIVE Urine Glucose (UA) NEGATIVE Urine Ketones NEGATIVE Urine Blood NEGATIVE Urine Nitrite NEGATIVE Urine Bilirubin NEGATIVE Urine Urobilinogen NEGATIVE Ur Leukocyte Esterase NEGATIVE Urine WBC (Auto) 1 Urine RBC (Auto) 0 Urine Bacteria (Auto) TRACE Squamous Epi Cells Auto 3 Urine Mucus (Auto) RARE Urine Ascorbic Acid NEGATIVE Urine HCG, Qual NEGATIVE 04/02/19 20:50 WBC RBC Hgb Hct MCV MCH MCHC RDW Plt Count Lymph % (Auto) Ray % (Auto) Eos % (Auto) Baso % (Auto) Absolute Neuts (auto) Absolute Lymphs (auto) Absolute Monos (auto) Absolute Eos (auto) Absolute Basos (auto) Seg Neutrophils % Sodium Potassium Chloride Carbon Dioxide Anion Gap BUN Creatinine Est GFR ( Amer) Est GFR (MDRD) Non-Af Glucose Calcium Total Bilirubin Direct Bilirubin Neonat Total Bilirubin Neonat Direct Bilirubin Neonat Indirect Bili AST ALT Alkaline Phosphatase NT-Pro-B Natriuret Pep 19 Total Protein Albumin Urine Color Urine Appearance Urine pH Ur Specific [place] Urine Protein Urine Glucose (UA) Urine Ketones Urine Blood Urine Nitrite Urine Bilirubin Urine Urobilinogen Ur Leukocyte Esterase Urine WBC (Auto) Urine RBC (Auto) Urine Bacteria (Auto) Squamous Epi Cells Auto Urine Mucus (Auto) Urine Ascorbic Acid Urine HCG, Qual Chest X-Ray 04/02/19 20:34 IMPRESSION: No evidence of acute cardiopulmonary disease. Discussed patient's negative lab results at length with her at bedside. Patient does appear very anxious and asks multiple questions. Patient is very surprised that her lower extremities are no longer swollen. Patient has been sitting in the bed with her legs raised since arrival to the emergency department. Patient states she no longer has a headache, or blurred vision. Patient voices that she will follow-up with her primary care provider in the morning. At this time will discharge with return precautions and follow-up recommendations. Verbal discharge instructions given a the bedside and opportunity for questions given. Medication warnings reviewed. Patient is in agreement with this plan and has verbalized understanding of return precautions and the need for primary care follow-up in the next 24-72 hours. This medical record was dictated with voice recognizing software. There may be grammatical, syntax errors that are unintended. - Vital Signs Vital signs: Temp Pulse Resp BP Pulse Ox 98.3 F 115 H 18 136/82 H 99 04/02/19 20:01 04/02/19 20:01 04/02/19 20:01 04/02/19 20:01 04/02/19 20:01 - Laboratory Result Diagrams: 04/02/19 20:50 04/02/19 20:50 Laboratory results interpreted by me: 04/02/19 04/02/19 20:50 20:50 Hct 35.5 L Sodium 132.0 L Chloride 95 L Creatinine 0.47 L Discharge - Discharge Clinical Impression: Leg swelling Condition: Stable Disposition: HOME, SELF-CARE Additional Instructions: As we discussed you have been seen and treated in the emergency department for the swelling noted to both of your lower extremities. Your labs are unremarkable. Please make sure to take medications as prescribed. Please also make sure you follow-up with your primary care provider in the next 24 to 48 hours. Please return to the emergency room for any further concerns. Forms: Return to Work Referrals: ARTIE ORNELAS, [NO LOCAL MD] - Follow up as needed
[2019-04-03 00:20] VITALS: BP 122/78
== END 2019-04-03 00:20 | disposition home or self-care (01) ==
LOC: ER 19:53
DX: M79.89 Other specified soft tissue disorders (principal); E10.9 Type 1 diabetes mellitus without complications; R51 Headache; H53.8 Other visual disturbances; R19.7 Diarrhea, unspecified; R06.02 Shortness of breath; Z79.899 Other long term (current) drug therapy; Z79.4 Long term (current) use of insulin
CPT/HCPCS: 36415; 71046; 80053; 81001; 81025; 83880; 85025; 99284

== ENCOUNTER 2019-04-07 14:39 | Emergency (ER) | payer BC ==
--- NOTE | 2019-04-07 15:06 | ER Document Report ---
ED Medical Screen (RME) - General Chief Complaint: Flank Pain Stated Complaint: FLANK PAIN Time Seen by Provider: 04/07/19 15:00 Notes: Patient is a 28-year-old female with history of type 2 diabetes, UTIs, hypertension who presents to the emergency department with chief complaint of left flank pain. Patient states this is been present for a day and a half. Patient states she does have painful urination. Patient states that the pain is intermittent and when it is present it is sharp and feels like a knife is twisting in her back. Patient states she has had nausea. Patient does report recent vomiting and diarrhea a few days ago reports she thought she may have had food poisoning. Patient states that the vomiting has since improved but still having some episodes of diarrhea. Patient denies fever. Patient states that she has had issues with swelling in her lower extremities. She states she was placed on a diuretic. Patient states she stopped taking her metformin 2 days ago as she thought the swelling was related to that medication and that it was potentially hurting her kidneys. TRAVEL OUTSIDE OF THE [place] IN LAST 30 DAYS: No - Related Data Allergies/Adverse Reactions: ceftriaxone [From Rocephin] Allergy (Verified 04/07/19 14:41) latex Allergy (Verified 04/07/19 14:41) lisinopril Allergy (Verified 04/07/19 14:41) losartan Allergy (Verified 04/07/19 14:41) Past Medical History - Social History Frequency of alcohol use: None Drug Abuse: None Endocrine Medical History: Reports: Hx Diabetes Mellitus Type 1 Renal/ Medical History: Reports: Hx Ovarian Cysts. Denies: Hx Peritoneal Dialysis Musculoskeltal Medical History: Reports Hx Musculoskeletal Deformity, Reports Hx Musculoskeletal Trauma Skin Medical History: Reports Hx Cellulitis Psychiatric Medical History: Reports: Hx Anxiety, Hx Depression Traumatic Medical History: Reports: Hx Fractures - wrist and ankle Past Surgical History: Reports: Hx Section - Immunizations Hx Diphtheria, Pertussis, Tetanus Vaccination: No Physical Exam - Vital signs Vitals: Temp Pulse Resp BP Pulse Ox 98.7 F 95 20 127/77 H 98 04/07/19 14:55 04/07/19 14:55 04/07/19 14:55 04/07/19 14:55 04/07/19 14:55 - Back Back: Normal Notes: NO CVA TENDERNESS. Course - Re-evaluation Re-evalutation: 04/07/19 15:06 I have greeted and performed a rapid initial assessment of this patient. A comprehensive ED assessment and evaluation of the patient, analysis of test r esults and completion of the medical decision making process will be conducted by additional ED providers. - Vital Signs Vital signs: Temp Pulse Resp BP Pulse Ox 98.7 F 95 20 127/77 H 98 04/07/19 14:55 04/07/19 14:55 04/07/19 14:55 04/07/19 14:55 04/07/19 14:55
[2019-04-07 15:47] LABS: ABSOLUTE EOSINOPHILS # (AUTO) 0.2 10^3/uL (0.0-0.6); ABSOLUTE LYMPHOCYTES (AUTO) 2.1 10^3/uL (0.5-4.7); ABSOLUTE MONOCYTES (AUTO) 0.5 10^3/uL (0.1-1.4); ABSOLUTE NEUT (AUTO) 5.2 10^3/uL (1.7-8.2); BASOPHILS % (AUTO) 0.6 % (0-2); EOSINOPHILS % (AUTO) 2.4 % (0-6); HEMATOCRIT 35.7 % (36.0-47.0); HEMOGLOBIN 12.5 g/dL (12.0-15.5); LYMPHOCYTES % (AUTO) 25.8 % (13-45); MEAN CORPUSCULAR HEMOGLOBIN 29.8 pg (27.0-33.4); MEAN CORPUSCULAR HGB CONC 34.9 g/dL (32.0-36.0); MEAN CORPUSCULAR VOLUME 85 fl (80-97); MONOCYTES % (AUTO) 6.2 % (3-13); PLATELET COUNT 240 10^3/uL (150-450); RED BLOOD COUNT 4.18 10^6/uL (3.72-5.28); RED CELL DISTRIBUTION WIDTH 13.1 % (11.5-14.0); TOTAL CELLS COUNTED % (AUTO) 100 %
[2019-04-07 15:58] LABS: APPEARANCE,URINE CLEAR; BILIRUBIN,URINE NEGATIVE (NEGATIVE); COLOR,URINE YELLOW; GLUCOSE, URINE >=500 mg/dL (NEGATIVE); KETONES,URINE NEGATIVE (NEGATIVE); LEUKOCYTE ESTERASE,URINE NEGATIVE (NEGATIVE); NITRITE,URINE NEGATIVE (NEGATIVE); PROTEIN,URINE NEGATIVE (NEGATIVE); URINE SPECIFIC GRAVITY 1.017; UROBILINOGEN,URINE NEGATIVE mg/dL (<2.0)
[2019-04-07] MEDS ORDERED: LIDOCAINE 5% (700 MG) TRANSDERMAL ADH..PATCH TP ONE (16:01)
[2019-04-07] MEDS ORDERED: KETOROLAC TROMETHAMINE 60 MG/2 ML SDV IM ONE (16:01)
--- NOTE | 2019-04-07 16:06 | ER Document Report ---
ED General - General Chief Complaint: Flank Pain Stated Complaint: FLANK PAIN Time Seen by Provider: 04/07/19 15:00 Primary Care Provider: VALERIO DOE MD [Primary Care Provider] - Follow up as needed TRAVEL OUTSIDE OF THE [place] IN LAST 30 DAYS: No - HPI Notes: Patient is a 28-year-old female with a history of type 2 diabetes, UTIs, hypertension who presents complaining of left lower back pain that is been present for 1.5 days and does not radiate. Patient states that bending twisting make the pain worse. Patient is described as a sharp pain. Patient states that the pain is normally there, but does have moments where it increases when she is doing activities. Patient states that she is urinating frequently, but this is normal for her. She has not noticed any blood in her urine. She is eating and drinking without difficulty. She is having normal bowel movements. No history of spinal abscess or IV drug abuse. 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 Denies any headache, fever, URI, sore throat, chest pain, palpitations, syncope, cough, shortness of breath, wheeze, dyspnea, abdominal pain, nausea/vomiting/diarrhea, urinary retention, dysuria, hematuria, loss of control of bowel or bladder, numbness/tingling, saddle anesthesia, muscle paralysis/weakness, or rash. - Related Data Allergies/Adverse Reactions: ceftriaxone [From Rocephin] Allergy (Verified 04/07/19 14:41) latex Allergy (Verified 04/07/19 14:41) lisinopril Allergy (Verified 04/07/19 14:41) losartan Allergy (Verified 04/07/19 14:41) Past Medical History - Social History Smoking Status: Never Smoker Frequency of alcohol use: None Drug Abuse: None Family History: Arthritis, DM, Hypertension, Malignancy, Thyroid Disfunction Patient has suicidal ideation: No Patient has homicidal ideation: No Endocrine Medical History: Reports: Hx Diabetes Mellitus Type 1 Renal/ Medical History: Reports: Hx Ovarian Cysts. Denies: Hx Peritoneal Dialysis Musculoskeletal Medical History: Reports Hx Musculoskeletal Deformity, Reports Hx Musculoskeletal Trauma Skin Medical History: Reports Hx Cellulitis Psychiatric Medical History: Reports: Hx Anxiety, Hx Depression Traumatic Medical History: Reports: Hx Fractures - wrist and ankle Past Surgical History: Reports: Hx Section - Immunizations Hx Diphtheria, Pertussis, Tetanus Vaccination: No Review of Systems - Review of Systems -: Yes All other systems reviewed and negative Physical Exam - Vital signs Vitals: Temp Pulse Resp BP Pulse Ox 98.7 F 95 20 127/77 H 98 04/07/19 14:55 04/07/19 14:55 04/07/19 14:55 04/07/19 14:55 04/07/19 14:55 - Notes Notes: PHYSICAL EXAMINATION: GENERAL: Well-appearing, well-nourished and in no acute distress. LUNGS: Breath sounds clear to auscultation bilaterally and equal. No wheezes r ales or rhonchi. HEART: Regular rate and rhythm without murmurs, rubs, gallops. ABDOMEN: Soft, nontender, nondistended abdomen. No guarding, no rebound. Normal bowel sounds present. No CVA tenderness bilaterally. No pulsatile mass Musculoskeletal: LE's b/l: FROM to passive/active. Strength 5+/5. No deficits noted. No bony tenderness of extremities. Back: FROM to passive/active. Strength 5+/5. No vertebral point tenderness, stepoffs, or deformities. No other bony tenderness, erythema, swelling, or ecchymosis. SLR negative b/l. + reproducible mild tenderness to the Lt L-paraspinal mm. Mild spasming. No SI jt tenderness. No foot drop Extremities: No cyanosis, clubbing, or edema b/l. Peripheral pulses 2+. Capillary refill less than 2 seconds. NEUROLOGICAL: Normal speech, normal gait. Normal sensory, motor exams. Reflexes 2+ b/l. PSYCH: Normal mood, normal affect. SKIN: Warm, Dry, normal turgor, no rashes or lesions noted. Course - Re-evaluation Re-evalutation: 04/07/19 16:55 Patient is an afebrile, well-hydrated, 28-year-old female who presents to the ED with Lt low back pain, suspect sprain/strain. Vitals are acceptable. PE is otherwise unremarkable for any focal neurological deficits. Patient was given Toradol and Lidoderm patch. She has no significant tachycardia, tachypnea, or hypoxia. She is nontoxic-appearing and is tolerating p.o. without difficulties. There are no signs of infection. No other red flag symptoms noted. Labs are acceptable. Glucose is elevated, but is near her baseline. No other labs or imaging warranted at this time based on H&P. Low suspicion for any meningitis, fracture, expanding/ruptured AAA, cauda equina syndrome, epidural mass lesion/abscess, herniated disc causing severe spinal stenosis, or other systemic infection at this time. Patient is aware that this condition can change from initial presentation and that she needs monitor symptoms closely for any acute changes. I will send her home with a prescription for robaxin and naproxen. Conservative measures otherwise for symptoms. Recheck with your PCM in 3-5 days. Consider consult with orthopedic/physical therapy. Return to the ED with any worsening/concerning symptoms otherwise as reviewed discharge. Patient is in agreement. - Vital Signs Vital signs: Temp Pulse Resp BP Pulse Ox 98.7 F 95 20 127/77 H 98 04/07/19 14:55 04/07/19 14:55 04/07/19 14:55 04/07/19 14:55 04/07/19 14:55 - Laboratory Result Diagrams: 04/07/19 15:22 04/07/19 15:22 Laboratory results interpreted by me: 04/07/19 04/07/19 04/07/19 15:22 15:22 15:22 Hct 35.7 L Sodium 134.7 L Chloride 97 L Glucose 306 H Urine Glucose (UA) >=500 H Discharge - Discharge Clinical Impression: Low back pain Qualifiers: Chronicity: acute Back pain laterality: left Sciatica presence: without sciatic a Qualified Code(s): M54.5 - Low back pain Condition: Stable Disposition: HOME, SELF-CARE Instructions: Muscle Relaxers ([facility]) Additional Instructions: Rest, Ice Tylenol/ibuprofen as needed Light stretches daily Strength exercises as able Moist heat and massage may help F/u with your PCP in 3-5 days for a recheck Consider consult(s) with Orthopedics/physical therapy for ongoing/worsening symptoms Return to the ED with any worsening symptoms and/or development of fever, headache, chest pain, palpitations, syncope, shortness of breath, trouble breathing, abdominal pain, n/v/d, blood in stool/urine, loss of control of bowel/bladder, urinary retention, muscle weakness/paralysis, saddle anesthesia, numbness/tingling, or other worsening symptoms that are concerning to you. Prescriptions: Naproxen 500 mg PO BID #14 tablet Methocarbamol [Robaxin 750 mg Tablet] 750 mg PO TID PRN #10 tablet PRN Reason: Forms: Elevated Blood Pressure Referrals: VALERIO DOE MD [Primary Care Provider] - Follow up as needed [facility] [Provider Group] - Follow up as needed
[2019-04-07 16:12] LABS: ALBUMIN 4.1 g/dL (3.5-5.0); ALKALINE PHOSPHATASE 52 U/L (38-126); ANION GAP 12 (5-19); ASPARTATE AMINO TRANSFERASE 22 U/L (14-36); BILIRUBIN,DIRECT 0.1 mg/dL (0.0-0.4); BILIRUBIN,TOTAL 0.5 mg/dL (0.2-1.3); BLOOD UREA NITROGEN 11 mg/dL (7-20); CALCIUM 9.8 mg/dL (8.4-10.2); CARBON DIOXIDE 26 mmol/L (22-30); CHLORIDE 97 mmol/L (98-107); GLUCOSE 306 mg/dL (75-110); POTASSIUM 4.6 mmol/L (3.6-5.0); TOTAL PROTEIN 6.6 g/dL (6.3-8.2)
[2019-04-07 17:09] VITALS: BP 130/71
== END 2019-04-07 17:09 | disposition home or self-care (01) ==
LOC: ER 14:39
DX: M54.5 Low back pain (principal); R10.9 Unspecified abdominal pain; E10.9 Type 1 diabetes mellitus without complications; I10 Essential (primary) hypertension
CPT/HCPCS: 99284; 96374; 36415; 85025; 81025; 80053; 81001; J1885